=== PATIENT | male | born 1935 | race Caucasian/White ===

== ENCOUNTER 2016-10-27 11:11 | Emergency (ER) | payer MEDICARE ==
[~2016-10-27] VITALS: Ht 182.9 cm; Wt 75.0 kg
[~2016-10-27 11:11] MED LIST: AMLODIPINE10 MG PO; AMOXICILLIN/CL875 MG PO; AUGMENTIN875TAB OR; BETAPACE AF80 MG OR; BETAPACE AF80 MG PO; BL ADULT ASA81 MG PO; COZAAR100 MG OR; FLONASE NASAL50 MCG; FLUOROURACIL51 EX; HYDRALAZINE50 MG PO; LOTRISONE EX; PLAVIX75 MG PO; POLYTRIM OD; PROAIR HFA IN; SIMVASTATIN20 MG OR; SIMVASTATIN40 MG PO
[2016-10-27 12:29] LABS: ALKALINE PHOSPHATASE 105 u/l (38-126); BILIRUBIN, TOTAL 1.5 mg/dL (0.0-1.4); BUN 24 mg/dL (8-23); BUN/CREATININE RATIO 23 (12-20 (CALC)); CALCIUM 9.2 mg/dL (8.4-10.2); CARBON DIOXIDE 23 mmol/l (22-30); CHLORIDE 107 mmol/l (95-108); GFR > 60 ML/MIN (>=60 (CALC)); GFR FOR AFR.AMER. > 60 ML/MIN (>=60 (CALC)); GLUCOSE 92 mg/dL (82-115); SGOT/AST 37 u/l (19-48); SGPT/ALT 33 u/l (11-66); SODIUM 140 mmol/l (137-146); TOTAL PROTEIN 6.9 g/dL (6.3-8.2)
[2016-10-27 12:30] LABS: ANION GAP 16 (6-22 (CALC)); POTASSIUM 5.8 mmol/l (3.5-5.1)
[2016-10-27 12:37] LABS: HEMATOCRIT 34.3 % (39.0-50.0); HEMOGLOBIN 10.9 g/dl (14.0-18.0); IMMATURE GRANULOCYTES 0.4 % (0.0-1.0); MEAN CELL VOLUME 94.8 fL CALC (80.0-100.0); MEAN CORPUSCULAR HGB 30.1 pG CALC (26.0-32.0); MEAN CORPUSCULAR HGB CONC 31.8 g/L CALC (32.0-36.0); NEUT# 2.76 thou/uL (1.82-7.42); RED BLOOD COUNT 3.62 mill/uL (4.70-6.10); RED CELL DISTRI WIDTH 15.9 % (11.5-15.5)
[2016-10-27 12:39] LABS: MYOGLOBIN 42 ng/mL (0 - 121)
[2016-10-27 14:26] LABS: URINE BILIRUBIN - DIPSTICK NEGATIVE (NEGATIVE); URINE BLOOD DIPSTICK NEGATIVE (NEGATIVE); URINE CLARITY CLEAR; URINE COLOR YELLOW; URINE GLUCOSE - DIPSTICK NEGATIVE (NEGATIVE); URINE KETONE NEGATIVE (NEGATIVE); URINE LEUK ESTERASE NEGATIVE (NEGATIVE); URINE NITRITE - DIPSTICK NEGATIVE (Negative); URINE PROTEIN - DIPSTICK TRACE mg/dL (NEG-TRACE); URINE UROBILINOGEN - DIPSTICK 0.2 E.U./dL (0.2)
[2016-10-27 19:10] VITALS: BP 144/87
== END 2016-10-27 19:10 ==
LOC: ED 11:11
PROVIDERS: Emergency Medicine
DX: R06.00 Dyspnea, unspecified (principal); R91.8 Other nonspecific abnormal finding of lung field; C95.90 Leukemia, unspecified not having achieved remission; I10 Essential (primary) hypertension; I25.10 Atherosclerotic heart disease of native coronary artery without angina pectoris; I48.91 Unspecified atrial fibrillation; Z95.5 Presence of coronary angioplasty implant and graft; Z79.899 Other long term (current) drug therapy
CPT/HCPCS: Q9967

== ENCOUNTER 2016-11-01 13:32 | Emergency (ER) | payer MEDICARE ==
[~2016-11-01] VITALS: Ht 182.9 cm; Wt 77.0 kg
[2016-11-01 15:23] LABS: BILIRUBIN, TOTAL 1.4 mg/dL (0.0-1.4); CALCIUM 10.1 mg/dL (8.4-10.2); CREATININE 1.4 mg/dL (0.7-1.3); TOTAL PROTEIN 7.2 g/dL (6.3-8.2)
[2016-11-01 15:24] LABS: POTASSIUM 5.6 mmol/l (3.5-5.1)
[2016-11-01 15:27] LABS: HEMATOCRIT 33.8 % (39.0-50.0); HEMOGLOBIN 12.3 g/dl (14.0-18.0); IMMATURE GRANULOCYTES 0.6 % (0.0-1.0); MEAN CELL VOLUME 95.5 fL CALC (80.0-100.0); MEAN CORPUSCULAR HGB 34.7 pG CALC (26.0-32.0); MEAN CORPUSCULAR HGB CONC 36.4 g/L CALC (32.0-36.0); NEUT# 6.19 thou/uL (1.82-7.42); RED BLOOD COUNT 3.54 mill/uL (4.70-6.10); RED CELL DISTRI WIDTH 21.2 % (11.5-15.5)
[2016-11-01 16:57] LABS: C. DIFFICILE TOXIN A&B NEGATIVE (NEGATIVE)
[2016-11-01] MEDS ORDERED: LOMOTIL2.5 MG PO (17:09)
[2016-11-01 17:26] VITALS: BP 138/81
== END 2016-11-01 17:35 | disposition home or self-care (01) ==
LOC: ED 13:32
PROVIDERS: Emergency Medicine
DX: K52.9 Noninfective gastroenteritis and colitis, unspecified (principal); E86.0 Dehydration; E87.5 Hyperkalemia; I10 Essential (primary) hypertension; I25.10 Atherosclerotic heart disease of native coronary artery without angina pectoris; I48.91 Unspecified atrial fibrillation; Z95.5 Presence of coronary angioplasty implant and graft; Z79.899 Other long term (current) drug therapy

== ENCOUNTER 2017-04-28 15:38 | Emergency (ER) | payer MEDICARE ==
[~2017-04-28] VITALS: Ht 182.9 cm; Wt 72.7 kg
[~2017-04-28 15:38] MED LIST changes: +LOMOTIL2.5 MG PO
[2017-04-28] MEDS ORDERED: KEFLEX500 MG PO (16:19)
[2017-04-28] MEDS ORDERED: EC-NAPROSYN500 MG PO (16:19)
[2017-04-28 17:11] VITALS: BP 117/72
== END 2017-04-28 17:20 | disposition home or self-care (01) ==
LOC: ED 15:38
DX: S09.90XA Unspecified injury of head, initial encounter (principal); S43.422A Sprain of left rotator cuff capsule, initial encounter; W19.XXXA Unspecified fall, initial encounter; Y92.009 Unspecified place in unspecified non-institutional (private) residence as the place of occurrence of the external cause; M25.512 Pain in left shoulder; I10 Essential (primary) hypertension; I48.91 Unspecified atrial fibrillation

== ENCOUNTER 2018-02-26 12:08 | Emergency (ER) | payer MEDICARE ==
[~2018-02-26] VITALS: Ht 182.9 cm; Wt 82.0 kg
[~2018-02-26 12:08] MED LIST changes: +EC-NAPROSYN500 MG PO; +KEFLEX500 MG PO
[2018-02-26 12:46] LABS: IMMATURE GRANULOCYTES 0.4 % (0.0-5.0); MEAN CELL VOLUME 93.4 fL CALC (80.0-100.0); MEAN CORPUSCULAR HGB 36.9 pG CALC (26.0-32.0); MEAN CORPUSCULAR HGB CONC 39.5 g/L CALC (32.0-36.0); NEUT# 5.46 thou/uL (1.82-7.42); RED BLOOD COUNT 5.15 mill/uL (4.70-6.10); RED CELL DISTRI WIDTH 18.7 % (11.5-15.5)
[2018-02-26 13:06] LABS: HEMATOCRIT 48.1 % (39.0-50.0)
[2018-02-26 13:07] LABS: BUN 18 mg/dL (8-23); BUN/CREATININE RATIO 17 (12-20 (CALC)); CHLORIDE 106 mmol/l (95-108); CREATININE 1.1 mg/dL (0.7-1.3); GFR > 60 ML/MIN (>=60 (CALC)); GFR FOR AFR.AMER. > 60 ML/MIN (>=60 (CALC)); SODIUM 144 mmol/l (137-146)
[2018-02-26 13:33] LABS: ANION GAP 13 (6-22 (CALC)); CARBON DIOXIDE 29 mmol/l (22-30); POTASSIUM 4.2 mmol/l (3.5-5.1)
[2018-02-26 14:28] LABS: URINE BILIRUBIN - DIPSTICK NEGATIVE (NEGATIVE); URINE BLOOD DIPSTICK NEGATIVE (NEGATIVE); URINE COLOR YELLOW; URINE GLUCOSE - DIPSTICK NEGATIVE (NEGATIVE); URINE KETONE NEGATIVE (NEGATIVE); URINE LEUK ESTERASE NEGATIVE (NEGATIVE); URINE NITRITE - DIPSTICK NEGATIVE (Negative); URINE PROTEIN - DIPSTICK TRACE mg/dL (NEG-TRACE); URINE SPECIFIC GRAVITY 1.015; URINE UROBILINOGEN - DIPSTICK 0.2 E.U./dL (0.2)
[2018-02-26 14:33] LABS: URINE CLARITY CLEAR
[2018-02-26] MEDS ORDERED: MAGNESIUM296 ML/BTL PO (14:53)
[2018-02-26 15:08] VITALS: BP 163/94
== END 2018-02-26 15:31 | disposition home or self-care (01) ==
LOC: ED 12:08
PROVIDERS: Family Medicine
DX: R53.81 Other malaise (principal); K59.00 Constipation, unspecified; I48.91 Unspecified atrial fibrillation

== ENCOUNTER 2018-03-06 06:28 | Inpatient (IN) | payer MEDICARE ==
[~2018-03-06] VITALS: Ht 182.9 cm; Wt 78.0 kg
[~2018-03-06 06:28] MED LIST changes: +MAGNESIUM296 ML/BTL PO
--- NOTE | 2018-03-06 06:41 | NUR ---
PT. TO ROOM 10 VIA EMS WITH C/O A TRIP AND FALL AT HOME WHEN HE GOT UP TO GO TO THE BATHROOM. LACERATION NOTED TO RIGHT PARITAL SIDE OF SKULL. MD IN ROOM TO APPLY STEVEN, AREA CLEANSED WITH HIBICLEANS.
[2018-03-06 06:56] LABS: HEMATOCRIT 52.5 % (39.0-50.0); HEMOGLOBIN 17.9 g/dl (14.0-18.0); IMMATURE GRANULOCYTES 0.6 % (0.0-5.0); MEAN CELL VOLUME 88.5 fL CALC (80.0-100.0); MEAN CORPUSCULAR HGB 30.2 pG CALC (26.0-32.0); MEAN CORPUSCULAR HGB CONC 34.1 g/L CALC (32.0-36.0); NEUT# 6.29 thou/uL (1.82-7.42); RED BLOOD COUNT 5.93 mill/uL (4.70-6.10); RED CELL DISTRI WIDTH 13.2 % (11.5-15.5)
--- NOTE | 2018-03-06 06:59 | NUR ---
REPORT GIVEN TO ROSA MARIA JESSICA.
--- NOTE | 2018-03-06 07:00 | NUR ---
VERISITE FORM PREVIOULY OBTAINED BY JASKARAN HALL.
--- NOTE | 2018-03-06 07:00 | NUR ---
BEDSIDE REPORT FROM JASKARAN HALL. AT BEDSIDE TO PLACE STEVEN. PATIENT CLEANED FROM BLOOD AND DRESSING APPLIED TO HEAD. PATIENT IS ALERT AND ORIENTED X3. REPORTS NO BEING ON BLOOD THINNERS WHEN ASKED.
[2018-03-06 07:05] LABS: ALBUMIN 3.7 g/dL (3.2-5.0); ALKALINE PHOSPHATASE 97 u/l (38-126); ANION GAP 12 (6-22 (CALC)); BILIRUBIN, TOTAL 1.2 mg/dL (0.0-1.4); BUN 17 mg/dL (8-23); BUN/CREATININE RATIO 16 (12-20 (CALC)); CARBON DIOXIDE 29 mmol/l (22-30); CHLORIDE 105 mmol/l (95-108); CREATININE 1.1 mg/dL (0.7-1.3); GFR > 60 ML/MIN (>=60 (CALC)); GFR FOR AFR.AMER. > 60 ML/MIN (>=60 (CALC)); POTASSIUM 3.8 mmol/l (3.5-5.1); SGOT/AST 29 u/l (19-48); SGPT/ALT 42 u/l (11-66); SODIUM 143 mmol/l (137-146); TOTAL PROTEIN 6.1 g/dL (6.3-8.2)
[2018-03-06 07:17] LABS: MYOGLOBIN 62 ng/mL (0 - 121)
[2018-03-06 07:37] LABS: ACT PARTIAL THROMBO TIME 27.2 SECONDS (20.0-32.5); INTERNATIONAL NORMALIZED RATIO 1.1 RATIO (0.7-1.3); PROTHROMBIN TIME 12.1 SECONDS (9.0-12.5)
--- NOTE | 2018-03-06 07:48 | NUR ---
PATIENT RETURNS TO ED, AT BEDSIDE. INFORMED OF B/P.
--- NOTE | 2018-03-06 08:11 | NUR ---
AT BEDSIDE FOR EXAM. SUTURES PLACED TO 9 CM LACERATION TO RIGHT SIDE OF HEAD, STAPLE CONTINUE IN PLACE. PATIENT TOLERATED WELL. DRESSING APPLIED. WILL CONTINUE TO MONITOR.
--- NOTE | 2018-03-06 08:35 | NUR ---
ORTHO BP COMPLETED, PATIENT DENIES ANY DIZZINESS UPON CHANGES IN POSITIION. ASSISTED TO SIDE OF BED X2 STAFF STANDBY ASSIST. 100 ML OF DARK YELLOW URINE OUT, SAMPLE COLLECTED. MEDICATED PER MD ORDER. WILL CONTINUE TO MONITOR.
[2018-03-06 08:43] LABS: URINE BILIRUBIN - DIPSTICK NEGATIVE (NEGATIVE); URINE BLOOD DIPSTICK SMALL (NEGATIVE); URINE GLUCOSE - DIPSTICK NEGATIVE (NEGATIVE); URINE KETONE NEGATIVE (NEGATIVE); URINE LEUK ESTERASE NEGATIVE (NEGATIVE); URINE PROTEIN - DIPSTICK 30 mg/dL (NEG-TRACE); URINE UROBILINOGEN - DIPSTICK 0.2 E.U./dL (0.2)
[2018-03-06 08:45] LABS: URINE CLARITY CLEAR; URINE COLOR DK. YELLOW; URINE NITRITE - DIPSTICK POSITIVE (Negative)
[2018-03-06 08:46] LABS: URINE BACTERIA FEW hpf; URINE RBC 0-2 RBC/hpf (0-5)
--- NOTE | 2018-03-06 09:15 | NUR ---
PATIENT UNABLE TO VERIFY HOME MEDICATIONS. PHARMACY CONSULT PLACED.
--- NOTE | 2018-03-06 09:35 | NUR ---
PATIENT RESTING ON STRETCHER WITH EYES CLOSED. RESPONDS TO VERBAL STIMULI. INFOMRED OF ADMIT STATUS. VERBAL UNDERSTANDING. WARM BLANKET PROVIDED PER REQUEST.
--- NOTE | 2018-03-06 09:37 | NUR ---
ATTEMPT MADE TO CALL REPORT, SPOKE TO ANDREW. REPORTS NURSE NOT AVAILABLE AT THIS TIME. WILL CALL BACK.
--- NOTE | 2018-03-06 09:59 | NUR ---
DRESSING TO HEAD FOUND OFF. WOUND REDRESSED.
--- NOTE | 2018-03-06 10:03 | NUR ---
ATTEMPT MADE TO CALL REPORT, NURSE NOT AVAILABLE.
--- NOTE | 2018-03-06 10:29 | NUR ---
REPORT CALLED TO JASKARAN TIRADO. INFORMED OF LABS, CT RESULTS AND MEDS GIVEN. INFORMED ABOUT STAPLE AND SUTURES PLACED TO RIGHT SIDE OF HEAD WITH DRESSING IN PLACE.
--- NOTE | 2018-03-06 10:35 | NUR ---
PATIENT TRANSPORTED TO [facility] VIA STRETCHER WITH TELE IN PLACE. JASKARAN TIRADO AT BEDSIDE. PATIENT IN STABLE CONDITION, CARE RELINQUISHED.
[2018-03-06 11:00] VITALS: BP 133/84
--- NOTE | 2018-03-06 11:05 | NUR ---
REPORT RECEIVED FROM ROSA MARIA PT ARRIVED ON UNIT @ 1039 VIA STRETCHER AND ASSISTED WITH TRANSFER TO BED, GAIT UNSTEADY, ALERT TO PERSON AND KNOWS HE IS IN A HOSPITAL BUT COULD NOT REMEMBER THE NAME. ORIENTED TO TIME AND PLACE. PRESSURE BANDAGE TO HEAD, LACERATION OBSERVED WITH SUTERES AND STEVEN INTACT, SCANT AMOUNT BLOODY DRAINAGE ON DRESSING. HEAD REWRAPPED WITH KERLEX DRESSING FROM ED FELL OFF. TELE MONITOR IN PLACE, ORIENTED TO ROOM AND CALL MANCILLA. PT JUST REQUESTED TO CALL SPOUSE, SHE WAS CALLED AND THEY ARE CONVERSING VIA PHONE NOW, WILL CONTINUE TO MONITOR.
--- NOTE | 2018-03-06 12:22 | NUR ---
SPOUSE CONTACTED VIA PHONE AND ASKED TO BRING IN PT'S MEDICATIONS FOR MED REC, WILL BE HERE AFTER 1500
[2018-03-06 13:37] VITALS: BP 134/76
[2018-03-06 13:38] VITALS: BP 135/61; BP 154/75
[2018-03-06 13:54] LABS: HEMOGLOBIN 17.8 g/dl (14.0-18.0); IMMATURE GRANULOCYTES 0.6 % (0.0-5.0); MEAN CELL VOLUME 90.7 fL CALC (80.0-100.0); MEAN CORPUSCULAR HGB 31.7 pG CALC (26.0-32.0); MEAN CORPUSCULAR HGB CONC 34.9 g/L CALC (32.0-36.0); NEUT# 13.31 thou/uL (1.82-7.42); RED BLOOD COUNT 5.62 mill/uL (4.70-6.10); RED CELL DISTRI WIDTH 14.7 % (11.5-15.5)
[2018-03-06 15:33] VITALS: BP 154/76
--- NOTE | 2018-03-06 15:58 | NUR ---
RESTING IN BED AND REQUESTING SLEEP AID AT THIS TIME, ADVISED IT IS JUST 1600 AND IT WASNT BEDTIME YET. SPOUSE VISITED AND BROUGHT IN HOME MEDS, OUTREACH LIBRARIAN REVIEWING MEDS AT THIS TIME, WILL CONTINUE TO MONITOR.
[2018-03-06] MEDS ORDERED: METOPROLOL SUCC50 MG PO (16:52)
[2018-03-06] MEDS ORDERED: DILTIAZEM HCL240 M1 PO (16:52)
--- NOTE | 2018-03-06 17:43 | NUR ---
ER REPORTED HR @ 120'S-130'S, ON ASSESSMENT PT WAS BEING REPOSITIONED BY PULLING UP SELF IN BED, RATE WAS UNSUSTAINED WHEN PT SETTLED DOWN. EARLIER REPORT WAS MADE OF SIMILAR RATE AND PT WAS FOUND TRYING TO PLACE URINAL, RATE ALSO DECREASED TO 90'S AGAIN AFTER PT WAS SETTLED, CONTINUE TO MONITOR.
--- NOTE | 2018-03-06 18:23 | NUR ---
STUART IN ED JUST REPORTED HR @ 140'S AGAIN, ON ASSESSMENT, PT WAS JUST SITTING UP IN BED RELAXING, DENIED PAIN/DISCOMFORT, THEN HR DOWN TO 90'S ON INQUIRY FROM ED, WILL CONTINUE TO MONITOR.
--- NOTE | 2018-03-06 19:33 | NUR ---
BEDSIDE REPORT RECEIVED FROM JASKARAN TIRADO. PT RESTING IN BED SEMI FOWLERS WITH HOB ELEVATED AT LEAST 45 DEGREES; ALERT. DRESSING TO RIGHT OCCIPITAL SCALP NOTED TO BE OFF AND REPLACED AT THIS TIME. PT DOES NOT REPORT ANY PAIN AT THIS TIME. RESPIRATIONS EVEN AND UNLABORED ON ROOM AIR. MD NOTIFIED OF ELEVATED HR DURING EXERTION; HE ORDERED A ONE TIME DOSE OF METOPROLOL TO BE GIVEN NOW AND AN EKG; EKG COMPLETED BY RT AT THIS TIME REPORTING AFIB WITH NORMAL HR AT REST. SAFETY MEASURES IN PLACE INCLUDING BED ALARM. CALL LIGHT WITHIN REACH.
[2018-03-06 19:36] VITALS: BP 148/71
--- NOTE | 2018-03-06 20:00 | NUR ---
METOPROLON GIVEN ORDERED. PT ALERT AND ORIENTED X 2. STATES THAT HE IS AT HOME. EASILY REORIENTED. C/O MILD HEADACHE; DECLINES COOL CLOTH AND MEDICATION.
--- NOTE | 2018-03-07 00:05 | NUR ---
PT ASLEEP AT THIS TIME WITH NO SIGNS OF DISTRESS. AWAKENED FOR NEURO CHECK; REMAINS UNCHANGED. C/O MILD HEADACHE. DRESSING REMAINS TO HEAD CDI. IV FLUIDS INFUSING WITHOUT DIFFICULTY; IV SITE APPEARS HEALTHY. USING URINAL TO VOID. SAFETY MEASURES IN PLACE INCLUDING BED ALARM WHICH HAS SOUNDED TWICE SO FAR THIS SHIFT; PT ATTEMPTING TO SIT UP ON EDGE OF BED TO VOID. USE OF CALL LIGHT SYSTEM REVIEWED AND WITHIN REACH.
[2018-03-07 03:30] VITALS: BP 159/96
--- NOTE | 2018-03-07 04:12 | NUR ---
DRESSING TO HEAD REPLACED DUE TO PREVIOUS ONE FALLING OFF; NOW CDI. PT DID BECOME DISORIENTED A FEW TIMES THROUGHOUT THE NIGHT STATING HE WAS GETTING OUT OF BED TO EXERCISE. EASILY REORIENTED. USING URINAL TO VOID, HOWEVER, HAS BEEN INCONTIENT AT TIMES. NEURO CHECKS WNL; NO CHANGES THROUGHOUT THE NIGHT. ORTHOSTATIC BP'S COMPLETED. SAFETY MEASURES IN PLACE INCLUDING BED ALARM. CALL LIGHT WITHIN REACH.
[2018-03-07 05:21] LABS: HEMATOCRIT 46.8 % (39.0-50.0); HEMOGLOBIN 16.3 g/dl (14.0-18.0); IMMATURE GRANULOCYTES 0.6 % (0.0-5.0); MEAN CELL VOLUME 87.8 fL CALC (80.0-100.0); MEAN CORPUSCULAR HGB 30.6 pG CALC (26.0-32.0); MEAN CORPUSCULAR HGB CONC 34.8 g/L CALC (32.0-36.0); NEUT# 6.57 thou/uL (1.82-7.42); RED BLOOD COUNT 5.33 mill/uL (4.70-6.10); RED CELL DISTRI WIDTH 13.3 % (11.5-15.5)
[2018-03-07 05:26] LABS: ALBUMIN 3.2 g/dL (3.2-5.0); ALKALINE PHOSPHATASE 85 u/l (38-126); ANION GAP 10 (6-22 (CALC)); BILIRUBIN, TOTAL 1.9 mg/dL (0.0-1.4); BUN 13 mg/dL (8-23); BUN/CREATININE RATIO 16 (12-20 (CALC)); CARBON DIOXIDE 29 mmol/l (22-30); CHLORIDE 105 mmol/l (95-108); CREATININE 0.8 mg/dL (0.7-1.3); GFR > 60 ML/MIN (>=60 (CALC)); GFR FOR AFR.AMER. > 60 ML/MIN (>=60 (CALC)); MAGNESIUM 1.8 mg/dL (1.6-2.3); POTASSIUM 3.6 mmol/l (3.5-5.1); SGOT/AST 22 u/l (19-48); SGPT/ALT 30 u/l (11-66); SODIUM 140 mmol/l (137-146); TOTAL PROTEIN 5.1 g/dL (6.3-8.2)
--- NOTE | 2018-03-07 07:00 | NUR ---
SHIFT CHANGE REPORT FROM MARCE, PT SLEEPING AT THIS TIME, BREATHING EVEN AND NON-LABORED, IVF INFUSING, TELE MONITOR IN PLACE, DRESSING TO HEAD DISPLACED BUT NO ACTIVE BLEEDING OBSERVED, BED ALARM ON AND CALL MANCILLA IN REACH.
[2018-03-07 08:11] VITALS: BP 121/77
--- NOTE | 2018-03-07 08:15 | NUR ---
PT AWAKE AND ALERT BUT DISORIENTED, REORIENTED TO PLACE AND TIME, NO C/O DISCOMFORT, ASSISTED WITH MEAL SET-UP, WILL CONTINUE TO MONITOR.
[2018-03-07 11:28] VITALS: BP 126/60
--- NOTE | 2018-03-07 12:03 | NUR ---
PT HAD SHOWER AND SITTING UP IN RECLINER COMFORTABLY, HAD C/O HEADACHE EARLIER BUT ON REASSESSMENT TO ADMINISTER ANALGESIC HE DENIED PAIN STATING HIS WAS COMPLETELY RELIEVED AFTER HIS SHOWER. STUART IN ED HAD REPORTED THAT PT HAD 9 BEATS V-TACK AT APPROX 1120, DR CYR AND MICAHEL WERE ROUNDING AT THAT MOMENT AND INFORMED TO EVENT; PT WAS SITTING COMFORTABLY IN CHAIR AND DENIED ANY PAIN/DISCOMFORT, WILL CONTINUE TO MONITOR.
--- NOTE | 2018-03-07 13:15 | NUR ---
ATE MEAL, ASSISTED WITH ELIMINATION AND BACK TO BED FOR AFTERNOON REST, ALARMS IN PLACE, CALL MANCILLA IN REACH.
[2018-03-07 15:34] VITALS: BP 123/67
--- NOTE | 2018-03-07 16:50 | NUR ---
ASSISTED OOB TO RECLINER, DENIED DISCOMFORT, CALL MANCILLA IN REACH.
[2018-03-07 19:41] VITALS: BP 130/78
--- NOTE | 2018-03-07 19:42 | NUR ---
BEDSIDE REPORT RECEIVED FROM JASKARAN TIRADO. PT RESTING IN BED ON LEFT SIDE; DROWSY AND ORIENTED X 1. C/O MILD HEADAHCE. RESPIRATIONS EVEN AND UNLABORED ON ROOM AIR. SPOKE WITH SIGNIFICANT OTHER ON PHONE FOR A WHILE. LACERATION TO RIGHT OCCIPITAL SCALP NOW MARITZA WITH DRIED BLOOD TO STEVEN. PLAN OF CARE REVIEWED. PT ENCOURAGED TO VERABLIZE CONCERNS. STATES UNDERSTANDING. SAFETY MEASURES IN PLACE. CALL LIGHT WITHIN REACH.
--- NOTE | 2018-03-07 22:21 | NUR ---
BED ALARM HAS SOUNDED X 3 PT ATTEMPTING TO GET OUT OF BED ON HIS OWN; WHEN ATTEMPTING TO REDIRECT HE JERKS HIS ARM AWAY. REPOSITIONED INTO RECLINER WITH BED ALARM REATTACHED. DENIES PAIN, DECLINES SNACK, AND STATES THAT HE IS COMFORTABLE. WILL CONTINUE TO MONITOR.
[2018-03-07 23:54] VITALS: BP 144/87
--- NOTE | 2018-03-08 00:12 | NUR ---
PT REMOVED BED ALARM FROM GOWN AND WAS ATTEMPTING TO STAND FROM CHAIR WITHOUT ASSISTANCE. OFFERED TO ASSIST PT BACK INTO BED, HE DECLINED AND STATES THAT HE WILL STAY UP IN THE CHAIR. ALARM REPLACED TO GOWN AND CALL LIGHT SYSTEM REVIEWED. IV SITE APPEARS HEALTHY AND FLUSHES. SAFETY MEASURES IN PLACE. CALL LIGHT WITHIN REACH.
--- NOTE | 2018-03-08 01:21 | NUR ---
REPOSITIONED BACK INTO BED. PT STATES, "I GUESS I'LL GO TO BED SINCE MY ISN'T COMING TO GET ME." EXPLAINED TO PT THAT DOCTOR WILL BE IN TO SEE HIM IN THE MORNING. BED ALARM ON AND PT RESTING WITH EYES CLOSED.
[2018-03-08 04:03] VITALS: BP 120/75
--- NOTE | 2018-03-08 04:28 | NUR ---
PT ASLEEP AT THIS TIME AND AWAKENS SPONTANEOUSLY. SMALL AMOUNT OF BLOODY DRAINAGE ON PILLOW FROM HEAD LAC. NO ACUTE CHANGES IN CONDITION THROUGHOUT THE NIGHT. SAFETY MEASURES IN PLACE. CALL LIGHT WITHIN REACH.
--- NOTE | 2018-03-08 07:13 | NUR ---
REPORT RECIEVED FROM JASKARAN ZHENG. PT APPEARS TO BE RESTING IN BED. CALL LIGHT IN REACH. WILL CONTINUE TO MONITOR.
[2018-03-08 07:25] VITALS: BP 111/65; BP 151/94
--- NOTE | 2018-03-08 07:25 | NUR ---
PT ORTHO BP DONE. LYIN PULSE, 111/65. SITTIN PULSE, 127/84. STANDIN PULSE, 151/64. NO S/S OF DISTRESS. WILL CONINUE TO MONITOR.
--- NOTE | 2018-03-08 07:25 | NUR ---
PT ASSESSMENT COMPLETE. PT ALERT ONLY TO SELF. SPEECH IS CLEAR. RESP EVEN AND UNLABORED. LUNG SOUNDS CLEAR. LAST BM 03/05/18. ABD ROUND, SOFT. BOWEL SOUNDS ACTIVE X4. STRONG RADIAL AND PEDAL PULSES. #20 LAC SL. SITE APPEARS HEALTHY. PT HAS RT PARIETAL LACERATION W/ SUTURES AND STEVEN INTACT. DRY BLOOD ATTACHED TO LACERATION AND VISIBLE ON PT PILLOW. PT HAS ABRASION TO RT EAR AND JAW BONE, DRY BLOOD TO EAR, NO ACTIVE DRAINAGE. PT DENIES ANY PAIN OR NEEDS AT THIS TIME. SAFETY PRECAUTIONS IN PLACE. CALL LIGHT IN REACH. WILL CONTINUE TO MONITOR.
--- NOTE | 2018-03-08 08:29 | NUR ---
PHYSICAL THERAPY IN TO SEE PT. WHEEL GRINDER OBSERVED PT WHEN STANDING AND TRANSPORTING TO CHAIR. PT HAS A UNSTEADY GAIT W/ ASSISTANCE OF WALKER AND PHYSICAL THERAPY WORKER.
--- NOTE | 2018-03-08 10:20 | NUR ---
DR. CYR IN TO SEE PT. PLAN OF CARE DISCUSSED. PT STATES UNDERSTANDING.
--- NOTE | 2018-03-08 12:00 | NUR ---
PT SITTING UPRIGHT IN RECLINER EATING LUNCH. PT DENIES ANY NEEDS AT THIS TIME. CALL LIGHT IN REACH. WILL CONTINUE TO MONITOR.
[2018-03-08 15:20] VITALS: BP 106/63
--- NOTE | 2018-03-08 15:22 | NUR ---
S: NELL LUCIO is a 82 M who presents with recent fall, dizziness and UTI. All medications in patient's chart were reviewed. O: VS: BP 111/65, P67, RR18,T97.2 W 78kg, Ht 72in, Scr=0.8,CrCl= 59.6 ml/min A: Urine culture on 03/06/18 shows staph epidermidis >100,000 CFU/mL which is sensitive to vancomycin. P: Vancomycin ordered for pharmacy to dose. Start Vancomycin 1000mg IV Q 12 H. Vancomycin trough is drawn before the 5th dose on 03/10/18 at 2:30pm. Vancomycin goal trough is between 10-15 mcg/ml. Pharmacy will follow and or advise on antibiotics use as needed.
--- NOTE | 2018-03-08 16:00 | NUR ---
PT UP TO SIDE OF BED TO USE URINAL. TRANSPORTED TO CHAIR BY OT. NO S/S OF DISTRESS NOTED. PT DENIES ANY PAIN OR NEEDS AT THIS TIME. AT BEDSIDE. SAFETY PRECAUTIONS IN PLACE. CALL LIGHT IN REACH. WILL CONTINUE TO MONITOR.
[2018-03-08 20:00] VITALS: BP 128/66
--- NOTE | 2018-03-08 20:00 | NUR ---
PATIENT WENT TO ECHO AND RETURNED BACK INTO BED. APPEARS SLEEPING AT THIS TIME. IVF NS PATENT AND INFUSING AT 50CC/HR VIA RIGHT FOREARM. SITE APPEARS HEALTHY AT THIS TIME, ABRASION NOTED TO RIGHT EAR, JAW AND KNEE.-MARITZA AT THIS TIME. TELE MONITORING DEVICE IN PLACE. VOIDED 100CC OF JENNIFER URINE IN URINAL. BED ALARM IN PLACE FOR PATIENT SAFETY. CALL LIGHT IN REACH. WILL CONT TO MONITOR.
[2018-03-09] VITALS (10 sets, daily range): BP systolic 122–183; BP diastolic 76–114
--- NOTE | 2018-03-09 03:57 | NUR ---
PATIENT RESTING IN BED WITH EYES CLOSED. RESP ARE EVEN AND UNLABORED. IVF NS PATENT AND INFUSING AT 50CC/HR VIA RIGHT FOREARM. SITE APPEARS HEALTHY. BED ALARM IN PLACE FOR PATIENT SAFETY. CALL LIGHT IN REACH. WILL CONT TO MONITOR.
--- NOTE | 2018-03-09 03:58 | NUR ---
PATIENT INCONT OF LARGE AMT OF URINE. COMPLETE LINEN CHANGE AND PERICARE WAS DONE. PATIENT IS MORE ALERT AND ORIENTED TO PERSON, KNOW HE IS IN THE HOSPITAL AND DOES KNOW HIS BIRTHDATE. DENIES ANY PAIN AT THIS TIME. IVF REMAIN AT 50CC/HR VIA RIGHT FOREARM SITE. BED ALARM REMAINS IN PLACE FOR PATIENT SAFETY. CALL LIGHT IN REACH. WILL CONT TO MONITOR.
--- NOTE | 2018-03-09 07:35 | NUR ---
PT RESTING IN BED WITH BED ALARM IN PLACE FOR PATIENT SAFETY PT ALERT AND ORIENTED TO NAME, , PRESIDENT AND LOCATION BUT CONFUSED ABOUT YEAR. STATES HE LIVES WITH HIS , PT IS UNSHAVEN AND SLIGHTLY UNKEMPT LOOKING BUT APPEARS NOURISHED, AM ASSESSMENT COMPLETED SEE INTERVENTIONS; TELE READING A FIB RATE IN THE 90'S, BP STABLE; AFEBRILE, SOME SLIGHT ABRASIONS TO R CHIN, AND EAR WELL STEVEN INTACT IN R LATERAL HEAD, COMFORT MEASURES PROVIDED AND SAFETY MEASURES REINFORCED, CALL MANCILLA WITHIN REACH.
--- NOTE | 2018-03-09 10:03 | NUR ---
PT SHOWERED AND ADL CARE PROVIDED WITH BARREL LAPPER MAX ASSIST, TOLERATED WELL, BACK TO BED AND CALL MANCILLA WITHIN REACH, LINEN CHANGE COMPLETED WELL, WILL CONTINUE TO MONITOR.
--- NOTE | 2018-03-09 12:04 | NUR ---
PATIENT WAS UP IN CHAIR AND JUST GOT BACK TO BED. HE IS IN AGREEMENT TO AMB AND STAY UP IN CHAIR FOR LUNCH WILL BE HERE SOON. SUPINE TO SIT WITH CHIP MACHINE OPERATOR. BED RAISED SLIGHTLY FOR SIT TO STAND WITH CGA WITH IMPROVED STANDING BALANCE WITH ONLY CGA. AMB 20 FFET AROUND BED WITH CGA AND V.C. FOR HAND PLACEMENT AND PROPER SEQUENCING FOR STAND TO SIT TRANSFERS. NO RETROPULSIVE BALANCE TODAY WITH INCREASED STEP LENGTH, BUT SMALL STEPS. TRAY TABLE, CALL MANCILLA IN REACH. IN ROOM AND STATES THAT PATIENT DOES LOOK BETTER TODAY.
--- NOTE | 2018-03-09 12:30 | NUR ---
pt showered earlier with 2 SILK SPOOLER assist, tolerated w/o incident, pt has unsteady gait and poor awareness of safety precautions, will continue to monitor. Bed alarm remains in use.
--- NOTE | 2018-03-09 14:16 | NUR ---
PT RESTING IN BED WITH EYES CLOSED, NO S/S OF DISTRESS OR DISCOMFORT, BED ALARM REMAINS IN USE FOR SAFETY, CALL MANCILLA WITHIN REACH
--- NOTE | 2018-03-09 16:05 | NUR ---
S: "I don't want to shave." O: Patient instructed in safe transfer from supine to sit and patient performed with S. Patient performed sit <-> stand with CG and VCs for safety/proper hand placement. Patient instructed in standing and O.T. instructed patient in UE dynamic standing exercises holding R.W with 1 hand and patient tolerated well. O.T. offered ADLs of shaving/grooming (oral care) and patient declined stating he cleaned his dentures this morning and shaves every 3 to 4 days. Patient reported his forgot to bring in his electric razor. Patient is still disoriented to place and time, however, recalled that he is here because he fell. A: Needs encouragement to participate. Poor safety awareness/insight. P: Will need slow-paced rehab.
--- NOTE | 2018-03-09 17:30 | NUR ---
therapy worked with patient earlier, flat affect, resting inrecliner awaiting pm meal, bed alarm remains inuse for safety, iv abt completed wi/o incident, will continue to monitor.
--- NOTE | 2018-03-09 19:15 | NUR ---
PATIENT SITTING UP IN THE RECLINER AT THIS TIME-AWAKE ALERT ORIENTED X1 WITH FLAT AFFECT. PATIENT WITH NO COMPLAINTS AT THIS TIME. TELE MONITORING DEVICE IN PLACE. IV SITE TO RIGHT FOREARM INTACT AND APPEARS HEALTHY AT THIS TIME. PATIENT WITH STAPLE TO RIGHT SIDE OF HIS HEAD. ABRASION TO RIGHT KNEE,RIGHT EAR AND RIGHT JAW-MARITZA WITH NO DRAINAGE NOTED. NEURO CHECKS UNCHANGED. ENCOURAGED PO FLUIDS. SAFETY ALARM IN PLACE FOR PATIENT SAFETY. CALL LIGHT IN REACH. WILL CONT TO MONITOR.
[2018-03-10] VITALS (7 sets, daily range): BP systolic 128–189; BP diastolic 73–100
--- NOTE | 2018-03-10 00:25 | NUR ---
BED ALARM GOING OFF AND RESPONDED TO ROOM. ASSISTED PATIENT TO SIDE OF THE BED TO VOID 100CC OF YELLOW URINE. ASSISTED BACK TO THE BED. BED ALARM RESET. INSTRUCTED PATIENT TO USE NURSE CALL LIGHT FOR ASSIST. CALL LIGHT IN REACH. WILL CONT TO MONITOR.
--- NOTE | 2018-03-10 04:40 | NUR ---
PATIENT INCONT OF MODERATE OF URINE-COMPLETE BED BATH GIVEN BY INTEGRATED CIRCUIT LAYOUT DESIGNER WITH COMPLETE LINEN CHANGED. IV VANCO INFUSING ORDERED VIA RIGHT FOREARM SITE. BED ALARM IN PLACE FOR PATIENT SAFETY. CALL LIGHT IN REACH. WILL CONT TO MONITOR.
--- NOTE | 2018-03-10 07:30 | NUR ---
PT RESTING IN BED WITH BED ALARM IN PLACE FOR PATIENT SAFETY PT REMAINS ALERT AND ORIENTED TO NAME, , PRESIDENT AND LOCATION BUT CONFUSED ABOUT YEAR. CONTINUES TO HAVE FLAT AFFECT, PT REMAINS UNSHAVEN AND SLIGHTLY UNKEMPT LOOKING BUT APPEARS NOURISHED, HAD SHOWER YESTERDAY AND FULL BATH EARLY THIS AM, AM ASSESSMENT COMPLETED SEE INTERVENTIONS; TELE READING A FIB RATE IN THE 75, BP STABLE; AFEBRILE, UNCHANGED SLIGHT ABRASIONS TO R CHIN, AND EAR WELL STEVEN INTACT IN R LATERAL HEAD, COMFORT MEASURES PROVIDED AND SAFETY MEASURES REINFORCED, CALL MANCILLA WITHIN REACH.
--- NOTE | 2018-03-10 08:58 | NUR ---
APPETITE GOOD ATE 100% OF AM MEALA ND DRANK 100% OF ENSURE, BED ALRM REMAINS IN USE FOR PATIENT SAFETY.
--- NOTE | 2018-03-10 09:43 | NUR ---
Seen pt sitting in recliner, Instructed pt to stand pushing off from arm rests. Pt was able to follow and stand using a RW for support. Instructed pt to perform functional mobility to bathroom to educate pt on hygiene and grooming. Pt was able to manuever RW to bathroom requiring CGA and sat on comode infront of sink and mirrow. Pt was able to complete shaving requiring MAX A to complete. Pt was able to clean face with washcloth and comb hair requiring Min A. Pt verbalized feeling much better after the shave.
--- NOTE | 2018-03-10 10:39 | NUR ---
PT AMBULATED TO BATHROOM WITH WALKER AND UNSTEADY GAIT, CONTINENT OF LARGE FORMED BM, SELF SANG CARE PROVIDED AND BACK TO BED TO REST PRIOR TO LUNCH WITH SAME UNSTEADY GAIT, CALL MANCILLA WITHIN REACH, BED ALARM IN USE FOR PT SAFETY.
--- NOTE | 2018-03-10 14:38 | NUR ---
PT AT BEDSIDE FOR THERAPY AGAIN, S.O. AT BEDSIDE AND UPDATED REGARDING PLAN INCLUDING D/C TO REHAB WHEN ABLE
--- NOTE | 2018-03-10 15:56 | NUR ---
S: NELL LUCIO is a 82 M who presents with a fall and head laceration. All medications in patient's chart were reviewed. O: VS: BP 138/73, P 88, RR 17, T 97.1 W 78, HT 72'', Scr= 0.8 ,CrCl= 70.6ml/min A: Urine culture collected on 03/06/18 shows staphylococcus epidermidis >100,000 CFU/mL which is sensitive to vancomycin. P: Patient is on Vancomycin. Vancomycin ordered for pharmacy to dose. Continue Vancomycin IV 1gm Q 12 H Vancomycin trough on 03/10/18 at 1445 is 13 Next trough to be drawn on 03/12/18 at 1430 Vancomycin goal trough is between <10-15 mcg/ml>. Pharmacy will follow and or advise on antibiotics use as needed.
--- NOTE | 2018-03-10 16:07 | NUR ---
Pt seen this pm for treatment, initially sleeping in bed ewith present, spoke with nursing and when returned to pt room he was sitting on edge of bed with urinal in place. Pt Ambuated 2 x 40' with CGA assist and verbal cue to stay center in walker, posture flexed, pt encouraged to stay erect. Sit to stand required min to mod assist x 1. Pt performed ex (AROM). He was left in chair with call ayala in lap, alarm in place, present. He was reminded not to get up withou assistance.
--- NOTE | 2018-03-10 17:28 | NUR ---
PT REMAINS SITTING UP IN RECLINER, BED ALARM IN PLACE FOR SAFETY. CALL LAURENT WIKELSEYIN REACH, CONTINUES TO HAVE FLAT AFFECT, PER SIGNIFICANT OTHER HE IS DEPRESSED ABOUT HAVING TO GO TO REHABM, EDUCATED REGARDING SAFETY CONCERNS IF HER WERE TO GO HOME, PT NODS THAT HE UNDERSTANDS BUT STAYS QUIET. CALL LAURENT WITHIN REACH, WILL CONTINUE TO MONITOR.
--- NOTE | 2018-03-10 19:50 | NUR ---
BEDSIDE REPORT RECEIVED FROM JASKARAN HOLLEY. PT SITTING UP IN RECLINER; ALERT AND OREINTED X 2. SPEAKING ON THE PHONE WITH HIS SIGNIFICANT OTHER. DENIES PAIN CURRENTLY. RESPIRATIONS EVEN AND UNLABORED ON OXYGEN. PLAN OF CARE REVIEWED. PT ENCOURAGED TO VERBALIZE CONCERNS. STATES UNDERSTANDING. SAFETY MEASURES IN PLACE. CALL LIGHT WITHIN REACH.
[2018-03-11] VITALS (9 sets, daily range): BP systolic 132–164; BP diastolic 61–101
--- NOTE | 2018-03-11 | NUR ---
PT RESTING IN BED ON RIGHT SIDE WITH EYES CLOSED AND NO SIGNS OF DISTRESS. BED ALARM HAS SOUNDED SEVERAL TIMES; PT FOUND ATTEMPTING TO SITE UP ON EDGE OF BED TO VOID; ASSISTED X 1 PERSON. DENIES PAIN. RESPIRATIONS EVEN AND UNLABORED ON ROOM AIR. IV SITE APPEARS HEALTHY AND FLUSHES. NO OTHER REQUESTS OR CONCERNS. SAFETY MEASURES IN PLACE INCLUDING BED ALARM. CALL LIGHT WITHIN REACH.
--- NOTE | 2018-03-11 03:55 | NUR ---
PT INCONTINENT OF URINE IN LARGE AMOUNTS, BED LINENES CHANGED AND HYGIENE PERFORMED. VANCO INFUSING AT THIS TIME WITHOUT DIFFICULTY. NO ACUTE CHANGES IN CONDITION THROUGHOUT THE NIGHT. CALL LIGHT WITHIN REACH.
[2018-03-11 05:50] LABS: ANION GAP 12 (6-22 (CALC)); BUN 25 mg/dL (8-23); BUN/CREATININE RATIO 31 (12-20 (CALC)); CARBON DIOXIDE 28 mmol/l (22-30); CHLORIDE 105 mmol/l (95-108); CREATININE 0.8 mg/dL (0.7-1.3); GFR > 60 ML/MIN (>=60 (CALC)); GFR FOR AFR.AMER. > 60 ML/MIN (>=60 (CALC)); HEMATOCRIT 45.7 % (39.0-50.0); HEMOGLOBIN 15.9 g/dl (14.0-18.0); IMMATURE GRANULOCYTES 0.8 % (0.0-5.0); MAGNESIUM 1.9 mg/dL (1.6-2.3); MEAN CELL VOLUME 87.9 fL CALC (80.0-100.0); MEAN CORPUSCULAR HGB 30.6 pG CALC (26.0-32.0); MEAN CORPUSCULAR HGB CONC 34.8 g/L CALC (32.0-36.0); NEUT# 5.16 thou/uL (1.82-7.42); POTASSIUM 3.7 mmol/l (3.5-5.1); RED BLOOD COUNT 5.2 mill/uL (4.70-6.10); RED CELL DISTRI WIDTH 13.3 % (11.5-15.5); SODIUM 142 mmol/l (137-146)
--- NOTE | 2018-03-11 07:25 | NUR ---
REPORT RECEIVED FROM JASKARAN ZHENG;PT OOB RESTING IN RECLINER;ALERT AND ORIENTED X2,PLEASANT;RESPIRATIONS EVEN AND UNLABORED ON RA;NO S/S OF DISTRESS NOTED;TELE MONITOR IN PLACE;PT DENIES ANY CURRENT PAIN OR NEEDS,ENCOURAGED TO CALL FOR ASSISTANCE IF NEEDED;FALL PRECAUTIONS IN PLACE WITH BED ALARM ON FOR PT SAFETY;CALL LIGHT IN REACH;WILL CONTINUE TO MONITOR
--- NOTE | 2018-03-11 09:30 | NUR ---
PT OOB RESTING IN RECLINER WITH OCCUPATIONAL THERAPY AT BEDSIDE;PT ALERT TO SELF,NON-VERBAL MOST OF THE TIME WITH FLAT AFFECT;VS OBTAINED AND ASSESSMENT COMPLETED;PT DENIES ANY CURRENT PAIN;RESPIRATIONS EVEN AND UNLABORED ON RA,DIMINISHED LUNG SOUNDS;ABDOMEN SOFT ON PALPATION AND ACTIVE IN ALL 4 QUADRANTS;WEAK PEDAL PULSES;GENERALIZED BRUISING NOTED THROUGHOUT,STEVEN TO HEAD LAC REMAIN IN PLACE;#20G TO RAC FLUSHED AND PATENT,SITE APPEARS HEALTHY AND RESECURED WITH TAPE;TELE MONITOR IN PLACE;PT DENIES ANY CURRENT NEEDS;BED ALARM ON FOR SAFETY;CALL LIGHT IN REACH;WILL CONTINUE TO MONITOR
--- NOTE | 2018-03-11 11:30 | NUR ---
PT RESTING IN BED;ORTHOSTATIC VS OBTAINED AT THIS TIME;LAYING BP 164/93 HR 101 SITTING BP 162/101 HR 78, STANDING BP 156/101 HR 80;RESPIRATIONS EVEN AND UNLABORED ON RA;PT DENIES ANY PAIN OR DIZZINESS;TELE MONITOR IN PLACE;IV SITE REMAINS PATENT;ENCOURAGED PT TO CALL FOR ASSISTANCE IF NEEDED;BED ALARM REMAINS ON FOR SAFETY;CALL LIGHT IN REACH;WILL CONTINUE TO MONITOR
--- NOTE | 2018-03-11 13:37 | NUR ---
AT BEDSIDE DISCUSSING POC
--- NOTE | 2018-03-11 14:02 | NUR ---
Pt seen sitting in recliner, stating he was feeling a little better. Instructed pt in functional mobility to restroom to work on hygiene/grooming skills. Pt was able to push up from recliner onto RW and manuever RW with CGA to bathroom. Pt sat on comode infront of sink to facilitate activity, he was able to wash face and dry using wash cloth. Instructed pt in doffing/donning gown and he was able to complete with Mod A. Pt stated he was feeling tired and wanted to lay in bed. Pt was able to maneuver RW from bathroom to sitting edge of bed with CGA. Pt was able to lay supine and scoot self to correct position in bed, requiring VC to complete. Pt requires extra time to motor plan movements.
--- NOTE | 2018-03-11 14:57 | NUR ---
Patient is pleasantly confuused but does follow instructions. He is able to transfer OOB with mod assist of 1 and ambulated about 80 feet with FWW and mod assist of 1 for his festinating gait. He is lethargic and is a fall risk. he would do well to attend rehab for fall prevention and strengthening to ensure his safety and maximize his independence
--- NOTE | 2018-03-11 15:30 | NUR ---
PT RESTING IN SUPINE POSITION,PLEASANTLY CONFUSED;ORIENTED ACCORDINGLY;RESPIRATIONS REMAIN EVEN AND UNLABORED ON RA;PT DENIES ANY CURRENT PAIN OR NEEDS;TELE MONITOR IN PLACE;IV SITE TO RAC PATENT;PT UPDATED ON POC;ENCOURAGED PO FLUIDS;FALL PRECAUTIONS IN PLACE;INSTRUCTED PT TO CALL FOR ASSISTANCE IF NEEDED;BED ALARM ON FOR SAFETY;WILL CONTINUE TO MONITOR
[2018-03-11] MEDS ORDERED: VANCOMYCIN1000 MG IV (15:45)
[2018-03-11] MEDS ORDERED: TRAMADOL HCL50 MG PO (15:46)
--- NOTE | 2018-03-11 19:45 | NUR ---
BEDSIDE REPORT RECEIVED FROM ARSENIO PICHARDO. PT RESTING IN BED ON LEFT SIDE WITH EYES CLOSED; AWAKENS TO VERBAL STIMULI, BUT KEEPS EYES CLOSED WHEN RESPONDING TO QUESTIONS. DENIES PAIN CURRENLTY. RESPIRATIONS EVEN AND UNLABORED ON ROOM AIR. PLAN OF CARE REVIEWED INCLUDING DISCHARGE SCHEDULED FOR THIS EVENING TO [facility] IN [place]. PT ENCOURAGED TO VERBALIZE CONCERNS; STATES UNDERSTANDING. SAFETY MEASURES IN PLACE. CALL LIGHT WITHIN REACH.
--- NOTE | 2018-03-11 21:53 | NUR ---
Discharge instructions given. Patient verbalizes understanding of same. Discharged in stable condition via Medical Transport to [facility] with [facility]. Report given to Mayela. All belongings sent with pt.
== END 2018-03-11 19:53 | DRG 689 ==
LOC: ED 06:28 → ED-I 07:59 → ED 09:25 → MS2 09:26
PROVIDERS: Emergency Medicine; Nurse Practitioner Family; ADMIT Internal Medicine Nephrology; ATTEND Internal Medicine Nephrology
PROC: 0HQ0XZZ Repair Scalp Skin, External Approach (ICD-10-PCS; principal; 2018-03-06)
DX: N39.0 Urinary tract infection, site not specified (principal); G93.49 Other encephalopathy; I16.0 Hypertensive urgency; I10 Essential (primary) hypertension; S01.01XA Laceration without foreign body of scalp, initial encounter; I25.10 Atherosclerotic heart disease of native coronary artery without angina pectoris; E78.5 Hyperlipidemia, unspecified; S80.211A Abrasion, right knee, initial encounter; I48.2 Chronic atrial fibrillation; K59.00 Constipation, unspecified; R26.89 Other abnormalities of gait and mobility; B95.7 Other staphylococcus as the cause of diseases classified elsewhere; W18.39XA Other fall on same level, initial encounter; Y92.003 Bedroom of unspecified non-institutional (private) residence as the place of occurrence of the external cause; Z95.5 Presence of coronary angioplasty implant and graft; Z91.81 History of falling

== ENCOUNTER 2018-04-28 01:40 | Inpatient (IN) | payer MEDICARE ==
[2018-04-28] VITALS (19 sets, daily range): BP systolic 146–182; BP diastolic 72–112
[~2018-04-28] VITALS: Ht 182.9 cm; Wt 79.0 kg
[~2018-04-28 01:40] MED LIST changes: +DILTIAZEM HCL240 M1 PO; +METOPROLOL SUCC50 MG PO; +TRAMADOL HCL50 MG PO; +VANCOMYCIN1000 MG IV
--- NOTE | 2018-04-28 01:40 | NUR ---
A/O X2 M WITH REPORTED DYSPNEA,FROM REHAB.PT VERBALLY RESPONSIVE SPEECH IS CLEAR ANSWERS SHORT/SIMPLE RESPONSES.W/P/D SKIN PT HAS CLEAR LUNGS,NO COUGH OR CONGESTION.OS ID PINK AND MOIST.ABD SOFT NONTENDER ACTIVE SOUNDS NO REBOUND.NO FOCAL WEAKNESSES.SYMETRICAL FACES.MOVES ALL EXT IF WEAKLY..A FIB 102 BPM.NO PVCS SEEN. PER EMS PT IS IN REHAB FOR A FALL.NO SKIN BRUISES OR OTHER DEFORMITIES SEEN
--- NOTE | 2018-04-28 02:34 | NUR ---
PRT GIVES ME VERBAL PERMISSION TO CATH FOR URINE SPEC SENT TO LAB.UNREMARKABLE PROCEDURE
[2018-04-28 02:50] LABS: URINE BILIRUBIN - DIPSTICK NEGATIVE (NEGATIVE); URINE BLOOD DIPSTICK TRACE-INTACT (NEGATIVE); URINE COLOR YELLOW; URINE GLUCOSE - DIPSTICK NEGATIVE (NEGATIVE); URINE KETONE NEGATIVE (NEGATIVE); URINE LEUK ESTERASE NEGATIVE (NEGATIVE); URINE NITRITE - DIPSTICK NEGATIVE (Negative); URINE PH 7.5 (4.5-8.0); URINE PROTEIN - DIPSTICK 30 mg/dL (NEG-TRACE); URINE UROBILINOGEN - DIPSTICK 0.2 E.U./dL (0.2)
--- NOTE | 2018-04-28 02:50 | NUR ---
PT BREATHING RAPID AND EXAGERATED,VACANT STARE WITHOUT RESPONSES HR 145-155 DR JUAREZ BROUGHT TO BEDSIDE
--- NOTE | 2018-04-28 02:52 | NUR ---
5 MG IVP VALIUM PER VO DR JUAREZ.SEE VS FLOW SHEET.PT REMAINS NONVERBAL.HR 1003-109 A FIB
[2018-04-28 02:58] LABS: URINE CLARITY CLEAR
[2018-04-28 03:01] LABS: URINE TRANSITIONAL EPI. CELLS RARE hpf
[2018-04-28 03:02] LABS: URINE AMORPH SEDIMENT FEW hpf (NONE-FER); URINE BACTERIA MODERATE hpf
[2018-04-28 03:05] LABS: ALBUMIN 3.9 g/dL (3.2-5.0); ALKALINE PHOSPHATASE 108 u/l (38-126); ANION GAP 13 (6-22 (CALC)); BILIRUBIN, TOTAL 1.2 mg/dL (0.0-1.4); BUN 16 mg/dL (8-23); BUN/CREATININE RATIO 17 (12-20 (CALC)); CARBON DIOXIDE 26 mmol/l (22-30); CHLORIDE 106 mmol/l (95-108); GFR > 60 ML/MIN (>=60 (CALC)); GFR FOR AFR.AMER. > 60 ML/MIN (>=60 (CALC)); POTASSIUM 4.5 mmol/l (3.5-5.1); SGOT/AST 23 u/l (19-48); SODIUM 140 mmol/l (137-146)
[2018-04-28 03:10] LABS: HEMATOCRIT 49.7 % (39.0-50.0); HEMOGLOBIN 16.9 g/dl (14.0-18.0); IMMATURE GRANULOCYTES 0.4 % (0.0-5.0); MEAN CELL VOLUME 89.4 fL CALC (80.0-100.0); MEAN CORPUSCULAR HGB 30.4 pG CALC (26.0-32.0); NEUT# 6.63 thou/uL (1.82-7.42); RED BLOOD COUNT 5.56 mill/uL (4.70-6.10); RED CELL DISTRI WIDTH 13.2 % (11.5-15.5)
[2018-04-28 03:15] LABS: INTERNATIONAL NORMALIZED RATIO 1.1 RATIO (0.7-1.3); PROTHROMBIN TIME 11.5 SECONDS (9.0-12.5)
[2018-04-28 03:17] LABS: MYOGLOBIN 178 ng/mL (0 - 121)
--- NOTE | 2018-04-28 03:26 | NUR ---
PT REMAINS UNRESPONSIVE TO VERBAL TACTILE STIM.SENG CONTROLLED RATE PREDOMINATES.NO PVCS W/P/D SKIN.RESP IS EVEN REGULAR AND NOT EXAGERATED
--- NOTE | 2018-04-28 04:00 | NUR ---
PT TO ICU BED 4 VIA STRETCHER ACCOMPANIED BY ER STAFF. PT A MAX ASSIST X3 FROM STRETCHER TO BED. PT PLACED ON MONITORS. PT REMAINS NON VERBAL AND FOLLOWS NO COMMANDS AT THIS TIME. SZ PRECAUTIONS IN PLACE ON BED. ADMISSION ASSESSMENT COMPLETED AT THIS TIME. BELONGINGS SHEET FILLED OUT AND PLACED IN CHART. PT UNABLE TO SIGN AT THIS TIME. IV PATENT X1. CALL LIGHT IN REACH. WILL CONTINUE TO MONITOR
--- NOTE | 2018-04-28 04:08 | NUR ---
PHONE REPORT TO NURSE REESE IN ICU
--- NOTE | 2018-04-28 04:11 | NUR ---
PT TRANSPOPRTED ON O2 AN D MONITOR IN STABLE CONDITION TO ICU 4
--- NOTE | 2018-04-28 05:38 | NUR ---
PT REMOVED CONDOM CATH THAT WAS PLACED ON. PT HAD MEDICUM SIZE URINARY INCONTINENCE. PT CLEANSED AND LINENS CHANGED. PLACED CALL TO DR ACOSTA FOR BP 170/104. CALL LIGHT IN REACH. WILL CONTINUE TO MONITOR.
--- NOTE | 2018-04-28 06:13 | NUR ---
SPOKE WITH DR ACOSTA REFERENCE PT ELEVATED BP. NEW ORDERS RECEIVED.
--- NOTE | 2018-04-28 06:40 | NUR ---
UNABLE TO PULL MEDICATION FROM [employer]. INVENTORIED MED AND PULLED AND GAVE 1.25MG IV
--- NOTE | 2018-04-28 06:50 | NUR ---
REPORT RECVD FROM JASKARAN REESE @ START OF SHIFT
--- NOTE | 2018-04-28 07:07 | NUR ---
LAB @BEDSIDE FOR TROPONIN REDRAW
--- NOTE | 2018-04-28 07:30 | NUR ---
PT UNDRESSING, REMOVING SHEETS, TRYING TO CLIMB OUT OF BED. REPOSITIONED PT FOR BREAKFAST. TRAY PLACED OVER PTS LAP. BED ALARM SET. PT ONLY ABLE TO REDIRECT FOR SECONDS. TRYING TO REMOVED MONITORS & NC.
--- NOTE | 2018-04-28 07:35 | NUR ---
CALLED PHARMACY FOR [facility]
--- NOTE | 2018-04-28 07:36 | NUR ---
ASSESSMENT COMPLETED. WEAK BILATERAL HAND GRASP, STRONG BILATERAL LEGS. EYES SLUGGISH @4 & SPEECH GARBLED BUT PT UNKNOWN NORMAL & VALIUIM GIVEN IN ER. PULSES STRONGx4. NO EDEMA. SHERI HOSE PLACED ON PT. HR IRREG, AFIB ON TELE. FACE EVEN. SLOW TO FOLLOW DIRECTIONS. BREATHING EVEN/UNLABORED, MILDLY DIMINISHED LUNG SOUNDS. NO COUGH. DENIES N/V/D. PINTO. ABD SOFT/NONTENDER, ACTIVE BS. SKIN WARM/DRY.
--- NOTE | 2018-04-28 07:44 | NUR ---
CALLED [facility] FOR INFORMATION BUT THEY SAID THEY DONT HAVE A PT BY THAT NAME THERE.
--- NOTE | 2018-04-28 07:50 | NUR ---
PT A&Ox2 TO NAME & PLACE BUT STATES IT IS 1993 & UNABLE TO GIVE NAME OF PRESIDENT. READ ED MD NOTES STATING PTS FOUND PT SO HE PROB ISNT FROM A REHAB. MAYBE HOME REHAB? WILL CONTINUE TO RESEARCH.
--- NOTE | 2018-04-28 08:18 | NUR ---
PT REFUSED FOOD BUT DRANK OJx2 WITH ASSISTANCE. PT HAD TROUBLE BRINKING FOOD/DRINK TO MOUTH.
--- NOTE | 2018-04-28 08:32 | NUR ---
NUBIA CALLED, STATES SHE HAS LIVED WITH PT FOR 25 YEARS. SHE WILL COME VISIT TODAY.
--- NOTE | 2018-04-28 09:34 | NUR ---
NUBIA, GIRLFRIEND, @BEDSIDE WITH PT. STATES THIS IS NOT PTS NORMAL; HE USUALLY WALKS ALL AROUND HOUSE & DRESSES/FEEDS HIMSELF. GIRLFRIEND GIVEN PTS CODE.
--- NOTE | 2018-04-28 10:30 | NUR ---
DR CYR IN ROOM, VERBAL ORDER TO STOP IVF.
--- NOTE | 2018-04-28 11:00 | NUR ---
PER PTS GIRLFRIENDS REQUEST, CALLED [facility] TO INQUIRE ABOUT RECENT SKIN CANCER LAST YEAR. PER [facility], PT HAS HX OF WALDENSTROM MACROGLOBULINEMIA. GIRLFRIEND STATED PT ONLY DID 2 ROUNDS OF CHEMOTHERAPY (NO RADIATION) BUT DID NOT DO HIS 3RD BC THE CHEMO MADE HIM VERY SICK & ANEMIC. DR CYR AWARE.
--- NOTE | 2018-04-28 11:03 | NUR ---
PER DR CYR, ON UNIT, #16 CATH VALENZUELA STARTED TO ACCURATELY MEASURE STRICT I&Os USING STERILE PROCEDURE. APPROX 100CC CLEAR YELLOW URINE OUTPUT.
--- NOTE | 2018-04-28 11:10 | NUR ---
200CC CLEAR YELLOW URINE OUTPUT FROM VALENZUELA BAG.
--- NOTE | 2018-04-28 11:35 | NUR ---
PT IS NPO. GIRLFRIEND @BEDSIDE GIVEN A GEUST TRAY.
--- NOTE | 2018-04-28 12:39 | NUR ---
TOYA, CASE MANAGEMENT, @BEDSIDE WITH PT & GIRLFRIEND.
--- NOTE | 2018-04-28 13:30 | NUR ---
RETURNED FROM CAT SCAN. 800CC CLEAR YELLOW URINE DRAINED FROM VALENZUELA
--- NOTE | 2018-04-28 14:57 | NUR ---
GIRLFRIEND WENT HOME BC SHE DOESNT LIKE TO DRIVE AT NIGHT. WILL BE BACK TOMORROW.
--- NOTE | 2018-04-28 16:27 | NUR ---
PT TRYING TO CLIMB OUT OF BED. REDIRECTED. BED ALARM SET. NO NEURO CHANGE SINCE START OF SHIFT.
--- NOTE | 2018-04-28 16:53 | NUR ---
DR MARTINEZ @BEDSIDE WITH PT, ASSESSING PT. AWARE OF BP.
--- NOTE | 2018-04-28 17:06 | NUR ---
DR PAULSON WRITTEN ORDERS FAXED TO [facility].
--- NOTE | 2018-04-28 17:45 | NUR ---
CALENDER TENDER @BEDSIDE.
--- NOTE | 2018-04-28 19:40 | NUR ---
awake. oriented to name only. environmental monitoring specialist shows a fib pvcs. #18 lac saline lock. remains npo. gary cath in place. urine cloudy yellow. sz & fall precautions cont. bed alarm on.
--- NOTE | 2018-04-28 22:00 | NUR ---
eyes closed. no distress. prepper shows a fib pvcs.
[2018-04-29] VITALS (20 sets, daily range): BP systolic 117–189; BP diastolic 75–117
--- NOTE | 2018-04-29 00:20 | NUR ---
lab here. blood drawn.
--- NOTE | 2018-04-29 02:00 | NUR ---
resting quietly. resps even & unlabored. no apparent distress. magnetic prospecting supervisor shows a fib pvcs.
--- NOTE | 2018-04-29 04:00 | NUR ---
eyes closed. no distress. no sz activity. bed alarm cont.
--- NOTE | 2018-04-29 05:00 | NUR ---
lab here. blood drawn.
[2018-04-29 05:42] LABS: ALBUMIN 3.6 g/dL (3.2-5.0); ALKALINE PHOSPHATASE 97 u/l (38-126); ANION GAP 10 (6-22 (CALC)); BILIRUBIN, TOTAL 1.5 mg/dL (0.0-1.4); BUN 13 mg/dL (8-23); BUN/CREATININE RATIO 12 (12-20 (CALC)); CARBON DIOXIDE 33 mmol/l (22-30); CHLORIDE 104 mmol/l (95-108); CREATININE 1.1 mg/dL (0.7-1.3); GFR > 60 ML/MIN (>=60 (CALC)); GFR FOR AFR.AMER. > 60 ML/MIN (>=60 (CALC)); POTASSIUM 4.2 mmol/l (3.5-5.1); SGOT/AST 26 u/l (19-48); SODIUM 142 mmol/l (137-146); TOTAL PROTEIN 5.6 g/dL (6.3-8.2)
[2018-04-29 05:49] LABS: HEMATOCRIT 48.5 % (39.0-50.0); HEMOGLOBIN 16.7 g/dl (14.0-18.0); IMMATURE GRANULOCYTES 1.3 % (0.0-5.0); MEAN CELL VOLUME 89.3 fL CALC (80.0-100.0); MEAN CORPUSCULAR HGB 30.8 pG CALC (26.0-32.0); MEAN CORPUSCULAR HGB CONC 34.4 g/L CALC (32.0-36.0); NEUT# 5.79 thou/uL (1.82-7.42); RED BLOOD COUNT 5.43 mill/uL (4.70-6.10)
--- NOTE | 2018-04-29 06:00 | NUR ---
awake. remains confused. oriented to name only. pvc monitor shows a fib pvcs.
--- NOTE | 2018-04-29 07:20 | NUR ---
pt resting in bed with eyes closed; easily aroused; pt offers no complaints; assessment completed at this time; pt alert to person only; pleasantly confused; unable to state year of birthday or age; pt denies pain; no apparent distress noted; resp even and unlabored; lungs clear/ diminished bases; skin color wnl; hr irreg; weak pedal pulses; no edema noted; afib on monitor; bilat knee high teodoro hose intact; abd soft with bs present; no bm noted per short story writer; gary to gravity draining cloudy dark yellow urine; cath gallagher intact; #18 ems site to lac; additional IV site attempted x2/ unsuccessful; iv to lac re-dressed and flushed with scant leakage at insertion site; plan of care/ am meds explained; seizure prec cont; bed alarm active for pt safety; call light within reach; will continue to monitor
--- NOTE | 2018-04-29 08:03 | NUR ---
pt awake in bed; no distress noted; offers no complaints; cooperative and pleasant; afib on monitor; call light within reach; will continue to monitor
--- NOTE | 2018-04-29 08:50 | NUR ---
Dr Leal present on unit; orders for Norvasc, Eliquis, Lopressor PO, Lopressor IV reviewed with MD d/t need for clarification; NPO status continues; MD wishes to have swallow eval prior to administering meds; will continue to monitor
--- NOTE | 2018-04-29 09:00 | NUR ---
call placed to PT in regards to swallowing eval; information provided; MD to place order; will continue to monitor
--- NOTE | 2018-04-29 09:15 | NUR ---
Dr Leal present at bedside to assess pt and discuss plan of care;
--- NOTE | 2018-04-29 10:15 | NUR ---
s/o present at bedside; afib on monitor; no distress noted; gary to gravity; iv patent; abt infusing without complication; no redness or edema noted at site; will continue to monitor
--- NOTE | 2018-04-29 10:55 | NUR ---
pt transported to MRI via wc accompanied by this typewriters functional tester in stable condition; pt and spouse denies pacemaker or implanted metal; denies allergy to contrast; typewriters functional tester remains with pt in MRI
--- NOTE | 2018-04-29 12:15 | NUR ---
1205-pt becoming more anxious while in MRI; pt has removed head coil support attachment; pt does not remain still after multiple reminders; pt returned to unit accompanied by this creative services writer in stable condition; 1215- returned to unit via wc in stable condition; ambulatory with weak/ unsteady gait; iv flushed and patent; no redness or edema noted at site; afib 100s on monitor; bp elevated; lopressor iv to be administered; s/o at bedside; pt offers no complaints; pt pulling at catheter gallagher/ broke clip; leg strap applied to right leg; reorientation required frequently; speech therapy at bedside for speech eval; will continue to monitor closely
--- NOTE | 2018-04-29 12:38 | NUR ---
Physician's Order for Swallowing Consult received by GROUNDS CLEANER 0908 this date. Patient transported by EMS to the ER on 04/28/18 with complaints of altered mental status and seizure-like activity per Significant-Other. Patient's history significant for HTN, CAD with multiple stents, Hyperlipidema, Hypercholesterolemia, Waldenstrom Macroglobulinemia and Non-Hodgkin Lymphoma with chemotherapy. Partner reports patient has been declining since chemotherapy 2 years ago. Medications include: Diltazem, Metroprolol Succinate, Tramadol, Lepressor. Physician's evaluation indicate possible UTI, possible pulmonary edema, possible congestive heart failure. Patient has no known drug or food allergies. GROUNDS CLEANER present for bedside swallowing evaluation when patient returned from MRI. Patient transferred to bed, sitting midline at 90 degree angle. Patient alert to name and date of , but could not provide age. Patient stated he is in [facility] and didn't know reason for hospitalization when given prompts and cues. Oral mechanism evaluation revealed patient to have upper denture plate and multiple missing lower teeth. Lingual fissures noted with functional lingual range of motion and midline. White subcutaneous node on left side of patient's throat noted. Patient was given applesauce which he "chewed" for 5-10 seconds before swallowing with adequate oral clearing and no buccal pocketing. No cough or wet vocal quality present post swallow. Patient given vanilla pudding which patient chewed 5-10 seconds then held in oral cavity for 5+ seconds before swallowing. Again, no buccal pocketing. Patient given verbal cues to swallow. Recommendations: Puree diet with regular liquids and bedside assistance. Position midline at 90 degree angle for all intake and for 30 minutes post. When feeding, press tongue with bowl of spoon and invert spoon for ice cream to provide tactile cues. Provide verbal cues throughout meals and check for buccal pocketing with oral care post meals. Monitor body temperature and breath sounds. GROUNDS CLEANER will evaluate patient with soft mechanical meal 04/30/18 a.m. if patient tolerates puree diet well this evening. Patient's partner given verbal instructions to assist patient with feeding. Thank you Dinora for your assistance and for the consultation. Laura Lackey M.A., [facility]-GROUNDS CLEANER Invert spoon for ice cream
--- NOTE | 2018-04-29 13:35 | NUR ---
informed MD of speech therapist recommendations; order for pureed diet placed
--- NOTE | 2018-04-29 14:05 | NUR ---
resting in bed with eyes open; no distress noted; resp even and unlabored; iv intact; afib on monitor; gary to gravity; pt alert/able to state name; continues with confusion; bed alarm active for pt safety; call light within reach; will continue to monitor
--- NOTE | 2018-04-29 14:43 | NUR ---
po fluids offered with refusal; afib on monitor; gary to gravity; call light within reach; will continue to monitor
--- NOTE | 2018-04-29 15:05 | NUR ---
Dr Leal informed per this teletypewriter operator of persistent HTN; orders to be placed; verbal order received to continues with IV lopressor; Lovenox to beh led until MRI report; informed pt refusing po; will continue to monitor
--- NOTE | 2018-04-29 16:02 | NUR ---
awake in bed; confusion noted; increased restlessness/anxiousness; pt noted removing monitoring attachments; explained and reconnected; pt pulling at gary catheter; bleeding noted to urinary meatus; pericare per jingle writer; afib 100-120s on monitor; gary to gravity; iv intact; bed alarm intact for pt safety; will continue to monitor
--- NOTE | 2018-04-29 16:14 | NUR ---
pt more restlessness/agitated; manual BP 180/110; afib 130s on monitor; continues to attempt to climb out of bed; pulling at monitoring attachments and gary catheter; pericare for bleeding noted to urinary meatus; iv intact; pt remains alert to name; Dr Leal informed of finding; orders to be placed
--- NOTE | 2018-04-29 17:01 | NUR ---
typewriters functional tester remains at bedside; continues with anxiousness; afib 110s on monitor; iv intact; gary to gravity; will continue to monitor
--- NOTE | 2018-04-29 17:50 | NUR ---
pt fed meal; no s/s of aspiration noted; no coughing or pocketing of food; hob remains elevated; will continue to monitor
--- NOTE | 2018-04-29 18:09 | NUR ---
awake in bed; restless; no apparent distress noted; iv flushed and patent; no redness or edema noted at site; afib on monitor; gary to gravity; bed alarm active for pt safety; bed in lowest position; call light within reach
--- NOTE | 2018-04-29 18:22 | NUR ---
Radiologist called at [phone] in regards to MRI report; radiologist states he has already spoken to Dr Leal;
--- NOTE | 2018-04-29 18:24 | NUR ---
Dr Leal called per this editorial writer in regards to MRI/conversation with radiologist; no report available at this time; Dr Leal admits to speaking with radiologist but awaiting confirmation/image report; Lovenox to be held; updated given to Dr Leal in regards to restlessness, bp 117/75; hr 110s;
--- NOTE | 2018-04-29 19:15 | NUR ---
eyes closed. no distress. cardiac nurse practitioner shows a fib pvcs. #22 rac saline lock. gary cath in place. urine cloudy yellow. fall & sz precautions cont. bed alarm on.
--- NOTE | 2018-04-29 20:05 | NUR ---
mri results rec'd per dr guan. dr olvera notified. orders rec'd.
--- NOTE | 2018-04-29 22:00 | NUR ---
eyes closed. no distress. beading sawyer shows a fib pvcs
[2018-04-30] VITALS (12 sets, daily range): BP systolic 114–176; BP diastolic 70–108
--- NOTE | 2018-04-30 00:01 | NUR ---
eyes closed. no distress. compliance monitor shows a fib pvcs.
--- NOTE | 2018-04-30 02:00 | NUR ---
resting quietly. resps even & unlabored. no apparent distress. no sz activity. bed alarm cont.
--- NOTE | 2018-04-30 04:30 | NUR ---
lab here. blood drawn.
[2018-04-30 05:21] LABS: HEMATOCRIT 52.1 % (39.0-50.0); HEMOGLOBIN 18.2 g/dl (14.0-18.0); IMMATURE GRANULOCYTES 0.4 % (0.0-5.0); MEAN CELL VOLUME 88.6 fL CALC (80.0-100.0); MEAN CORPUSCULAR HGB CONC 34.9 g/L CALC (32.0-36.0); NEUT# 5.17 thou/uL (1.82-7.42); RED BLOOD COUNT 5.88 mill/uL (4.70-6.10); RED CELL DISTRI WIDTH 13.1 % (11.5-15.5)
[2018-04-30 05:43] LABS: ALBUMIN 3.5 g/dL (3.2-5.0); ALKALINE PHOSPHATASE 96 u/l (38-126); ANION GAP 12 (6-22 (CALC)); BILIRUBIN, TOTAL 1.7 mg/dL (0.0-1.4); BUN 18 mg/dL (8-23); BUN/CREATININE RATIO 17 (12-20 (CALC)); CARBON DIOXIDE 26 mmol/l (22-30); CHLORIDE 107 mmol/l (95-108); CREATININE 1.1 mg/dL (0.7-1.3); GFR > 60 ML/MIN (>=60 (CALC)); GFR FOR AFR.AMER. > 60 ML/MIN (>=60 (CALC)); POTASSIUM 3.9 mmol/l (3.5-5.1); SGOT/AST 42 u/l (19-48); SODIUM 141 mmol/l (137-146); TOTAL PROTEIN 5.7 g/dL (6.3-8.2)
--- NOTE | 2018-04-30 06:01 | NUR ---
no distress this shift. no sz activity. garment examiner shows a fib pvcs.
--- NOTE | 2018-04-30 07:40 | NUR ---
ASSESSMENT IS COMPLETED: PT IS AWAKE, INQUIRED HOW HE WAS TODAY STATED " I AM GOOD", HR IS REG, PULSES ARE STRONG X4, ABD IS SOFT WITH ACTIVE BS. VALENZUELA DRAINING YELLOW URINE. BREATH SOUNDS ARE CLEAR IN UPPER AND WHEEZING IN LOWER. CONTINUE TO OSBERVE AND MONITOR
--- NOTE | 2018-04-30 08:42 | NUR ---
Patient sitting 90 degrees in bed with puree breakfast tray. Oriented to self and general place "hospital." Patient reported he is feeling better. CLINICAL LAW PROFESSOR provided soft mechanical breakfast tray and patient consumed waffle and scrambled eggs without choking, coughing or pocketing. Recommend increasing diet to soft mechanical and continue to monitor body temperature, breath sounds and check for pocketing with stringent oral care following meals. Patient stated he prefers hot tea or hot chocolate rather than coffee. Thank you, Laura Lackey M.A., [facility] [place]-CLINICAL LAW PROFESSOR
--- NOTE | 2018-04-30 09:20 | NUR ---
REVIEWING THE MRI REPORT, CALLED ER AND INQUIRED ABOUT A STROKE EVAL. BRIAN JESSICA CAME AND DID A STROKE EVAL. AND INFORMED DR. CYR OF THE RESULT. PT WILL BE SENT TO [facility] FOR NEUROLOGY.
--- NOTE | 2018-04-30 10:00 | NUR ---
TRACEE JESSICAWRAPPER LAYER IN TO ASSIST WITH ARRANGEMENTS TO [facility]. CHART IS COPIED AND READY , CD OF RADIOLOGY IS WITH PACKET. WAITING ON A BED FROM [facility].
--- NOTE | 2018-04-30 11:00 | NUR ---
SIGNIFICANT OTHER IN THE ROOM. CONCERNED THAT PT HAS NOT HAD A BM SINCE HE ARRIVED. INFORMED STAFF, " WHEN I HAD A STROKE, I WAS CONSTIPATED AND THEN WHEN MY BOWELS MOVED IT WAS BETTER AND I RECOVERD". DR. CYR ON THE UNIT, EXPLAINED THAT IT WILL BE TAKEN CARE OF AT [facility]. INFORMED HER THAT HE HAS PNEUMONIA, AND BLADDER INFECTION BESIDES SUSPECTED STROKE,.
--- NOTE | 2018-04-30 11:57 | NUR ---
PT IS FEEDING HIMSELF WITH ASSISTANCE FROM HIS SIGNIFICANT OTHER.
--- NOTE | 2018-04-30 12:30 | NUR ---
PT IS FEEDING HISSELF. IV SITE IS FREE FROM REDNESS OR EDEMA. SIGNIFICANT OTHER IN THE ROOM. CONTINUE TO OSBERVE AND MONITOR . WAITING ON A BED FROM [facility]
--- NOTE | 2018-04-30 16:30 | NUR ---
received a call from [facility] , [facility] will be here in 30 to 40 minutes
--- NOTE | 2018-04-30 16:37 | NUR ---
spoke with randal blue other re: pt will be picked up in 30 to 40 minutes. from [facility].
--- NOTE | 2018-04-30 17:40 | NUR ---
[facility] here to transport pt. to [facility].
--- NOTE | 2018-04-30 17:52 | NUR ---
SPOKE WITH ENRICO JESSICA RECEIVING REPORT FOR EMMANUEL JESSICA, AT [facility]. [facility] HAS LEFT TO TRANSPORT PT. IV SITE REMAINS INTACT,. VALENZUELA INTACT DRAINING YELLOW URINE. HRT MONITOR READING AFIB. WITH PVC'S. CONTINUE TO OSBERVE AND MONITOR,
--- NOTE | 2018-04-30 18:08 | NUR ---
Discharge instructions given. Patient verbalizes understanding of same. Discharged in good condition via Stretcher to *Other with *Other. All belongings sent with pt.[facility]
== END 2018-04-30 18:00 | disposition short-term general hospital (02) | DRG 64 ==
LOC: ED 01:40 → ED-I 02:20 → ED 02:20 → ED-I 03:19 → ED 03:43 → ICU 03:44
PROVIDERS: Emergency Medicine; Internal Medicine Nephrology; ADMIT Internal Medicine; ATTEND Internal Medicine
PROC: 0T9B70Z Drainage of Bladder with Drainage Device, Via Natural or Artificial Opening (ICD-10-PCS; principal; 2018-04-28)
DX: I63.40 Cerebral infarction due to embolism of unspecified cerebral artery (principal); J18.9 Pneumonia, unspecified organism; N39.0 Urinary tract infection, site not specified; I10 Essential (primary) hypertension; E78.5 Hyperlipidemia, unspecified; I25.10 Atherosclerotic heart disease of native coronary artery without angina pectoris; I48.2 Chronic atrial fibrillation; Z79.82 Long term (current) use of aspirin; R56.9 Unspecified convulsions; R29.705 NIHSS score 5; Z92.21 Personal history of antineoplastic chemotherapy; Z85.828 Personal history of other malignant neoplasm of skin; Z85.72 Personal history of non-Hodgkin lymphomas; Z95.5 Presence of coronary angioplasty implant and graft
CPT/HCPCS: J1650; J2060; J3360; S0164